=== PATIENT | female | born 1975 | race Caucasian/White ===

== ENCOUNTER 2017-03-23 10:06 | Emergency (ER) | payer OTHER ==
[2017-03-23 10:11] VITALS: BP 122/57; PULSE 86; TEMP 99; BMI 36.0
--- NOTE | 2017-03-23 10:44 | PDOC ---
History of Present Illness - General Chief Complaint: Cold Symptoms Stated Complaint: PAIN/ THROAT, BACK Time Seen by Provider: 03/23/17 10:18 History Source: Patient Exam Limitations: No Limitations - History of Present Illness Initial Comments: 03/23/17 10:53 Chief complaint: Productive cough, sore throat upper back and chest discomfort when coughing for 2 weeks History of present illness: Patient is a 41 year old female with no significant medical history here today complaining of worsening productive cough yellowish phlegm with chest discomfort and upper back discomfort when coughing. Patient also reports that her throat is sore. Patient denies any fever or any vomiting. Patient is up-to-date with immunizations including influenza vaccine. She denies any chance of had tubal ligation. She denies any shortness of breath. Timing/Duration: getting worse, intermittent Severity: moderate Associated Symptoms: reports: chest pain (when cough and upper back pain ). denies: fever/chills, shortness of breath, weakness Past History - Past Medical History Allergies/Adverse Reactions: Allergies Allergy/AdvReac Type Severity Reaction Status Date / Time No Known Allergies Allergy Verified 03/23/17 10:11 Home Medications: Ambulatory Orders Albuterol Sulfate Inhaler - [Ventolin Hfa Inhaler -] 2 inh PO Q4H PRN #1 inh Azithromycin [Zithromax 250mg Tablets -] 250 mg PO UTDICT #6 tab 03/23/17 Guaifenesin Dm [Mucinex Dm -] 1 tab PO Q12H PRN #10 tab.er.12h 03/23/17 Other medical history: NONE - Suicide/Smoking/Psychosocial Hx Smoking History: Never smoked Hx Alcohol Use: No Drug/Substance Use Hx: No Review of Systems - Review of Systems Able to Perform ROS?: Yes Constitutional: No: Symptoms Reported HEENTM: Yes: Throat Pain Respiratory: Yes: Productive cough (yellowish for 2 weeks ). No: Shortness of Breath, SOB with Exertion, SOB at Rest, Stridor, Wheezing Cardiac (ROS): Yes: Chest Pain (when coughing only ) ABD/GI: No: Symptoms Reported : No: Symptoms Reported Musculoskeletal: Yes: Back Pain (b/l upper back pain when coughing only) Integumentary: No: Symptoms Reported Neurological: No: Symptoms reported *Physical Exam - Vital Signs Last Vital Signs Temp Pulse Resp BP Pulse Ox 99.0 F 86 20 122/57 100 03/23/17 10:09 03/23/17 10:09 03/23/17 10:09 03/23/17 10:09 03/23/17 10:09 - Physical Exam General Appearance: Yes: Appropriately Dressed HEENT: positive: TMs Normal, Pharyngeal Erythema. negative: Tonsillar Exudate, Tonsillar Erythema Neck: negative: Lymphadenopathy (R), Lymphadenopathy (L) Respiratory/Chest: positive: Lungs Clear, Normal Breath Sounds. negative: Chest Tender, Respiratory Distress Cardiovascular: positive: Regular Rhythm, Regular Rate, S1, S2 Musculoskeletal: positive: Normal Inspection. negative: CVA Tenderness, CVA Tenderness (R), CVA Tenderness (L), Vertebral Tenderness Neurologic: positive: Alert, Normal Response, Responsive Medical Decision Making - Medical Decision Making 03/23/17 10:54 Patient is a 41 year old female with no significant medical history here today complaining of worsening productive cough yellowish phlegm with chest discomfort and upper back discomfort when coughing. Patient also reports that her throat is sore. Patient denies any fever or any vomiting. Patient is up-to- date with immunizations including influenza vaccine. She denies any chance of had tubal ligation. She denies any shortness of breath. Bronchitis PLAN: DUONEB NOW DECADROM 10 MG PO NOW ALBUTEROL HFA 2 PUFFS EVERY 4 HRS PRN SEVERE COUGH/SOB AZITHROMYCIN 250 MG 2 TABS NOW THAN ONE TAB DAILY FOR FOLLOWING 4 DAYS MUCINEX DM 1 tablet every 12 hours as needed for cough #10 tabs 03/23/17 10:57 *DC/Admit/Observation/Transfer Diagnosis at time of Disposition: Bronchitis - Discharge Dispostion Disposition: HOME Condition at time of disposition: Stable - Prescriptions Prescriptions: Guaifenesin Dm [Mucinex Dm -] 1 tab PO Q12H PRN #10 tab.er.12h PRN Reason: Cough Albuterol Sulfate Inhaler - [Ventolin Hfa Inhaler -] 2 inh PO Q4H PRN #1 inh PRN Reason: Short Of Breath/Wheezing Azithromycin [Zithromax 250mg Tablets -] 250 mg PO UTDICT #6 tab - Referrals Referrals: Josie Travis MD [Primary Care Provider] - - Patient Instructions Additional Instructions: Follow-up with your primary care provider within the next few days Return to emergency room if symptoms worsen or new symptoms develop Rest and drink a lot of fluids Patient voiced understanding of discharge instructions and all questions were answered
[2017-03-23] MEDS ORDERED: ALBUTEROL SO4 2.5/IPRATROPIUM 0.5 INH SOL 3 ML VIAL.NEB. NEB ONE ×2 (10:49→10:53)
[2017-03-23] MEDS ORDERED: DEXAMETHASONE LIQUID 0.5 MG/5 ML 240 ML BULK BOTTLE PO ONE (10:50)
[2017-03-23] MEDS ORDERED: DEXAMETHASONE SOD PHOSPHATE 10 MG/1 ML VIAL ONE (10:53)
== END 2017-03-23 12:01 | disposition home or self-care (01) ==
LOC: JERFT 10:06
PROC: 3E0F7GC Introduction of Other Therapeutic Substance into Respiratory Tract, Via Natural or Artificial Opening (ICD-10-PCS; principal; 2017-03-23)
DX: J40 Bronchitis, not specified as acute or chronic (principal)
CPT/HCPCS: 94640; 99281-25

== ENCOUNTER 2019-03-13 06:09 | Day surgery (SDC) | payer OTHER ==
[2019-03-12 12:54] VITALS: BMI 36.8
[2019-03-13] MEDS ORDERED: PROPOFOL 20 ML ONE ×4 (07:31→07:50)
[2019-03-13] MEDS ORDERED: SUCCINYLCHOLINE CHLORIDE 200 MG/10 ML SYRINGE ONE (07:31)
[2019-03-13] MEDS ORDERED: MIDAZOLAM HCL 2 MG/2 ML SINGLE DOSE VIAL ONE (07:32)
[2019-03-13] MEDS ORDERED: DEXAMETHASONE SOD PHOSPHATE 4 MG/1 ML VIAL ONE (07:33)
[2019-03-13] MEDS ORDERED: KETOROLAC TROMETHAMINE 30 MG/1 ML VIAL ONE (07:33)
[2019-03-13] MEDS ORDERED: LIDOCAINE HCL/PF 2% SDV 5ML VIAL ONE (07:33)
[2019-03-13] MEDS ORDERED: ceFAZolin SODIUM 1 GM VIAL ONE (07:33)
[2019-03-13] MEDS ORDERED: SODIUM CHLORIDE 0.9% P/F 10 ML VIAL IJ ONE ×2 (07:33→08:28)
[2019-03-13] MEDS ORDERED: DEXMEDETOMIDINE HCL 200 MCG/2 ML IVPB ONE (07:40)
--- NOTE | 2019-03-13 08:10 | HP ---
History & Physical Update - History History: No Change - Physical Physical: No Change - Assessment Assessment: No Change - Plan Plan: No Change (H & P done on 02/19/19)
[2019-03-13] MEDS ORDERED: LIDOCAINE HCL 1% EPINEPHRINE 1:200,000 30 ML VIAL (PF) ONE (08:18)
[2019-03-13] MEDS ORDERED: ceFAZolin SODIUM 1 GM VIAL IVPB ONE (08:20)
[2019-03-13] MEDS ORDERED: BENZOIN TINCTURE SWABSTICK TP ONE (08:49)
--- NOTE | 2019-03-13 09:40 | OP ---
Operative Note - Note: Operative Date: 03/13/19 Pre-Operative Diagnosis: left knee soft tissue mass Operation: Excision of left knee soft tissue mass Findings: fibrofatty mas, r/o lipoma Post-Operative Diagnosis: Same as Pre-op Surgeon: Maicol Padilla Anesthesia: Local, MAC Specimens Removed: lipoma Estimated Blood Loss (mls): 3
[2019-03-13] MEDS ORDERED: oxyCODONE HCL 5 MG TABLET PO PRN (09:54)
[2019-03-13] MEDS ORDERED: ONDANSETRON 4 MG/2 ML VIAL IVPUSH PRN (09:54)
[2019-03-13] MEDS ORDERED: LACTATED RINGERS SOLUTION 1,000 ML IV SCH (10:00)
--- NOTE | 2019-03-13 12:13 | OP ---
DATE OF OPERATION: 03/13/2019 PROCEDURE: Excision of left knee soft tissue mass. PREOPERATIVE DIAGNOSIS: Left knee soft tissue mass. POSTOPERATIVE DIAGNOSIS: Left knee soft tissue mass. SURGEON: Maicol Padilla MD ANESTHESIA: Local with sedation. FINDINGS AND PROCEDURE: This is a 43-year-old female who presents with an ill-defined soft tissue mass of the left knee at the area of the tibial plateau, which was about 4 cm in size. Patient was scheduled for elective excision of the mass, and consultation was obtained after discussing the risks, benefits, and alternatives of the procedure. Patient was brought to the operating room and placed in supine position. Intravenous sedation was given by the anesthesia team. The operative site was prepped and draped in the usual sterile fashion. Using lidocaine 1% with epinephrine, local anesthesia was administered to the proposed incision site. A 3.5-cm vertical incision over the mass was made using scalpel blade No. 15 with dissection carried down to the subcutaneous tissue. Further dissection using Bovie cautery combined with Metzenbaum scissors was done until the fibrofatty mass with no well-defined borders was completely excised. Aggregate size of about 4 x 4 cm of mass was excised. Hemostasis was achieved using Bovie cautery. The wound was closed with interrupted Polysorb 3-0 suture for the dermis and continuous Biosyn 4-0 suture for the subcuticular layer. The wound closure was reinforced with Steri-Strips and covered with pressure dressing. The patient was transferred to the post anesthesia care unit in satisfactory condition. ESTIMATED BLOOD LOSS: About 3 mL. WOUND CLASS: Clean. The patient received a gram of Ancef prior to the start of the procedure. Zoya [id number]
[2019-03-13 18:17] VITALS: BP 100/59; PULSE 72; TEMP 98.3
--- NOTE | 2019-03-16 17:08 | PATH ---
Surgical Pathology Report Patient Name: PIEDAD VALADEZ Med. Rec. #: [id number] /Age/Gender: 1975 (Age: 43) / F Account: [id number] Location: [facility] Taken: 03/13/2019 Received: 03/13/2019 Reported: 03/16/2019 Physicians: Maicol Padilla M.D. Specimen(s) Received LEFT KNEE SOFT TISSUE MASS Clinical History Soft tissue mass left knee Final Diagnosis SOFT TISSUE MASS, KNEE, LEFT, EXCISION: MATURE FIBROADIPOSE TISSUE CONSISTENT WITH LIPOMA. Electronically Signed Marlen Belle M.D. Gross Description Received in formalin labeled "left knee soft tissue mass" are multiple fragments of yellow, lobulated soft tissue measuring 3.5 x 3 x 1.5 cm in aggregate. Cut section is yellow, fatty and homogenous. No areas of hemorrhage or necrosis identified. [employer]ch[employer]ising [employer]ist sections are submitted in one cassette. MLJILL/03/13/2019 mike/03/13/2019
== END 2019-03-13 12:00 | disposition home or self-care (01) ==
LOC: JASU-SURG 06:09
PROVIDERS: ATTEND Surgery
PROC: 0JBP0ZZ Excision of Left Lower Leg Subcutaneous Tissue and Fascia, Open Approach (ICD-10-PCS; principal; 2019-03-13 08:00)
DX: D17.24 Benign lipomatous neoplasm of skin and subcutaneous tissue of left leg (principal)
CPT/HCPCS: 84703; 88304-TC; 94760

== ENCOUNTER 2022-01-13 12:24 | Emergency (ER) | payer OTHER ==
[2022-01-13 12:35] VITALS: BP 123/81; PULSE 70; RESP 19; TEMP 97.9; BMI 37.0
[2022-01-13] MEDS ORDERED: KETOROLAC TROMETHAMINE 30 MG/1 ML VIAL IM ONE (12:58)
[2022-01-13] MEDS ORDERED: KETOROLAC TROMETHAMINE 30 MG/1 ML VIAL ONE (13:04)
== END 2022-01-13 13:33 | disposition home or self-care (01) ==
LOC: JERFT 12:24
PROC: 3E0233Z Introduction of Anti-inflammatory into Muscle, Percutaneous Approach (ICD-10-PCS; principal; 2022-01-13)
DX: M79.10 Myalgia, unspecified site (principal)
CPT/HCPCS: 99283-25

== ENCOUNTER 2022-01-22 06:28 | Emergency (ER) | payer OTHER ==
[2022-01-22 06:55] VITALS: BMI 31.4
[2022-01-22] MEDS ORDERED: LIDOCAINE 5% TOPICAL PATCH TP ONE (08:01)
[2022-01-22] MEDS ORDERED: IBUPROFEN 600 MG TABLET (FP) PO ONE ×2 (08:12→08:22)
[2022-01-22] MEDS ORDERED: LIDOCAINE 5% TOPICAL PATCH ONE (08:22)
[2022-01-22 08:55] LABS: BASO % 0.6 % (0-2.0); EOS % 4.5 % (0-4.5); HEMATOCRIT 37.8 % (32.4-45.2); HEMOGLOBIN 12.7 GM/dL (10.7-15.3); LYMPH % 26.7 % (8-40); MCH 24.8 pg (25.7-33.7); MCHC 33.5 g/dl (32.0-36.0); MEAN PLT VOLUME 8.6 fl (7.5-11.1); MONO % 8.4 % (3.8-10.2); NEUT % 59.8 % (42.8-82.8); PLATELET COUNT 312 10^3/uL (134-434); RBC 5.12 M/mm3 (3.60-5.2); RDW 15.8 % (11.6-15.6); WHITE BLOOD COUNT 8.4 K/mm3 (4.0-10.0)
[2022-01-22 09:21] LABS: CHLORIDE 111 mmol/L (98-107); SODIUM 141 mmol/L (136-145)
[2022-01-22 09:23] LABS: BLOOD UREA NITROGEN 12.6 mg/dL (7-18); CALCIUM 8.8 mg/dL (8.5-10.1)
[2022-01-22 09:24] LABS: ALBUMIN 3.6 g/dl (3.4-5.0); ANION GAP 5 MMOL/L (8-16); CO2 25 mmol/L (21-32); GLUCOSE,RANDOM 115 mg/dL (74-106)
[2022-01-22 09:27] LABS: CREATININE 0.5 mg/dL (0.55-1.3); SGOT/AST 20 U/L (15-37); SGPT/ALT 24 U/L (13-61)
[2022-01-22 09:28] LABS: BILIRUBIN,TOTAL 0.4 mg/dL (0.2-1); TOT PROT 7.4 g/dl (6.4-8.2)
[2022-01-22 09:29] LABS: ALK PHOS 110 U/L (45-117)
[2022-01-22 11:18] VITALS: BP 126/78; PULSE 62; RESP 20; TEMP 98.9
[2022-01-22] MEDS ORDERED: LIDOCAINE PATCH REMOVAL MC SCH (20:00)
== END 2022-01-22 11:56 | disposition home or self-care (01) ==
LOC: JER 06:28
DX: S22.32XA Fracture of one rib, left side, initial encounter for closed fracture (principal)
CPT/HCPCS: 36415; 71046-TC-FY; 71101-TC-LT-FY; 80053; 84484; 85025; 93005; 93010; 99284-25

== ENCOUNTER 2023-09-01 20:40 | Emergency (ER) | payer OTHER ==
[2023-09-01 20:49] VITALS: BP 145/57; PULSE 78; RESP 18; TEMP 98.9; BMI 38.1
[2023-09-01] MEDS ORDERED: LIDOCAINE 4% PATCH TP ONE (21:54)
[2023-09-01] MEDS ORDERED: ACETAMINOPHEN INJECTION 100 ML IVPB ONE (21:54)
[2023-09-01] MEDS: ACETAMINOPHEN 1000 MG/100 ML BAG IVPB ONE (22:14)
[2023-09-01] MEDS: LIDOCAINE 4% PATCH TP ONE (22:14)
[2023-09-01] MEDS: LIDOCAINE PATCH REMOVAL MC SCH (22:14)
[2023-09-01 22:18] LABS: BASO % 0.9 % (0-2.0); EOS % 3.1 % (0-4.5); HEMATOCRIT 39.9 % (32.4-45.2); HEMOGLOBIN 12.8 GM/dL (10.7-15.3); MCH 24.7 pg (25.7-33.7); MCHC 32.1 g/dl (32.0-36.0); MEAN CELL VOLUME 77.1 fl (80-96); MEAN PLT VOLUME 8.8 fl (7.5-11.1); MONO % 10.3 % (3.8-10.2); NEUT % 58.7 % (42.8-82.8); PLATELET COUNT 263 10^3/uL (134-434); RBC 5.18 M/mm3 (3.60-5.2); RDW 16.8 % (11.6-15.6); WHITE BLOOD COUNT 10.6 K/mm3 (4.0-10.0)
[2023-09-01 22:20] LABS: PH,URINE 6.5 (5.0-8.0); URINE APPEARANCE CLEAR; URINE BILIRUBIN NEGATIVE (NEGATIVE); URINE COLOR YELLOW; URINE GLUCOSE (UA) NEGATIVE (NEGATIVE); URINE KETONE NEGATIVE (NEGATIVE); URINE LEUK ESTERASE NEGATIVE (NEGATIVE); URINE NITRITE NEGATIVE (NEGATIVE); URINE PROTEIN NEGATIVE (NEGATIVE); URINE UROBILINOGEN 0.2 mg/dL (0.2-1.0)
[2023-09-01 22:23] LABS: HCG,QUALITATIVE URINE Negative
[2023-09-01 22:37] LABS: INR 0.9 (0.83-1.09); PROTHROMBIN TIME (PATIENT) 10.4 SEC (9.7-13.0)
[2023-09-01 22:46] LABS: CALCIUM 8.9 mg/dL (8.5-10.1)
[2023-09-01 22:47] LABS: ALBUMIN 3.4 g/dl (3.4-5.0); BLOOD UREA NITROGEN 14.5 mg/dL (7-18); MAGNESIUM 2.2 mg/dL (1.8-2.4)
[2023-09-01] MEDS ORDERED: CYCLOBENZAPRINE HCL 5 MG TABLET ONE (22:47)
[2023-09-01 22:49] LABS: CREATININE 0.5 mg/dL (0.55-1.3)
[2023-09-01 22:51] LABS: BILIRUBIN,TOTAL 0.3 mg/dL (0.2-1)
[2023-09-01] MEDS: CYCLOBENZAPRINE HCL 5 MG TABLET PO ONE (22:51)
[2023-09-01 22:52] LABS: TOT PROT 7.2 g/dl (6.4-8.2)
[2023-09-01] MEDS ORDERED: KETOROLAC TROMETHAMINE 30 MG/1 ML VIAL IVPUSH ONE (23:08)
[2023-09-02] MEDS ORDERED: CYCLOBENZAPRINE HCL 5 MG TABLET PO ONE (21:40)
== END 2023-09-01 23:34 | disposition home or self-care (01) ==
LOC: JER 20:40
PROC: 3E033NZ Introduction of Analgesics, Hypnotics, Sedatives into Peripheral Vein, Percutaneous Approach (ICD-10-PCS; principal; 2023-09-01)
DX: M54.6 Pain in thoracic spine (principal); S29.012A Strain of muscle and tendon of back wall of thorax, initial encounter; W10.9XXA Fall (on) (from) unspecified stairs and steps, initial encounter; Y93.01 Activity, walking, marching and hiking; Z20.822 Contact with and (suspected) exposure to COVID-19
CPT/HCPCS: 0241U-QW; 36415; 71046-TC-FY; 80053; 81003; 83735; 84484; 84703; 85025; 85610; 85730; 87086; 93005; 93010; 99285-25; J0131

== ENCOUNTER → 2023-11-11 | Emergency (ER) | payer OTHER ==
[2023-11-11 20:28] VITALS: BP 139/80; PULSE 101; RESP 18; TEMP 98.4; BMI 40.1
== END ==
LOC: JER 20:22
DX: Z53.29 Procedure and treatment not carried out because of patient's decision for other reasons (principal)
CPT/HCPCS: 99281-25